=== PATIENT | female | born 1945 | race Two or more races ===

== ENCOUNTER → 2018-06-04 | Outpatient (CLI) | payer MEDICARE, BC | END | disposition home or self-care (01) | LOC: CFH 08:27 | PROVIDERS: ATTEND Internal Medicine Cardiovascular Disease | DX: R06.02 Shortness of breath (principal); R78.5 Finding of other psychotropic drug in blood; Z82.49 Family history of ischemic heart disease and other diseases of the circulatory system | CPT/HCPCS: 78452; 93017; A9502 ==

== ENCOUNTER 2018-10-16 08:55 | Day surgery (SDC) | payer MEDICARE, BC ==
[~2018-10-16] VITALS: Ht 160 cm; Wt 107.6 kg
[~2018-10-16 08:55] MED LIST: Will bring list DOS
[2018-10-16 09:55] VITALS: BP 170/90
[2018-10-16] MEDS ORDERED: ALPR1TAB6 PO (10:07)
[2018-10-16] MEDS ORDERED: HYDR500C3 PO (10:07)
[2018-10-16] MEDS ORDERED: MONT10TA9 PO (10:07)
[2018-10-16] MEDS ORDERED: VENL75TA2 PO (10:07)
[2018-10-16] MEDS ORDERED: LOVA20TA2 PO (10:07)
[2018-10-16] MEDS ORDERED: THYR90TA PO (10:07)
[2018-10-16] MEDS ORDERED: HYDR25TA6 PO (10:07)
[2018-10-16] MEDS ORDERED: BUSP15TA PO (10:07)
[2018-10-16] MEDS ORDERED: FLUT1BLS11 INH (10:07)
[2018-10-16] MEDS ORDERED: MIDAZOLAM 1 MG/ML, 2ML ONE (10:21)
[2018-10-16] MEDS ORDERED: FENTANYL PF 100 MCG/2ML ONE (10:21)
[2018-10-16] MEDS ORDERED: LACTATED RINGERS 1,000 ML IV SCH (10:23)
[2018-10-16] MEDS ORDERED: PROMETHAZINE 25 MG/ML, 1ML IV PRN (11:00)
[2018-10-16] MEDS ORDERED: FENTANYL PF 100 MCG/2ML IV PRN (11:00)
[2018-10-16] MEDS ORDERED: MEPERIDINE/PF 25MG/0.5ML IVPush PRN (11:00)
[2018-10-16] MEDS ORDERED: HYDROmorphone 2 MG/ML, 1ML IVPush PRN (11:00)
[2018-10-16] MEDS ORDERED: hydrALAzine 20 MG/ML, 1ML IV PRN (11:00)
[2018-10-16] MEDS ORDERED: ACETAMINOPHEN 325 MG TABLET PO PRN (11:00)
[2018-10-16] MEDS ORDERED: ONDANSETRON 2MG/ML, 2ML IV PRN (11:00)
[2018-10-16] MEDS ORDERED: OXYcodone 5 MG/5 ML ORAL.SOL UDC PO PRN (11:00)
[2018-10-16] MEDS ORDERED: LABETALOL 5MG/ML, 20ML IV PRN (11:00)
[2018-10-16] MEDS ORDERED: PROPOFOL 10 MG/ML, 20ML ONE (15:34)
== END 2018-10-16 13:10 | disposition home or self-care (01) ==
LOC: OUT 08:55
PROVIDERS: ATTEND Internal Medicine Gastroenterology
DX: Z12.11 Encounter for screening for malignant neoplasm of colon (principal); K63.5 Polyp of colon; K57.30 Diverticulosis of large intestine without perforation or abscess without bleeding; K64.1 Second degree hemorrhoids; G47.33 Obstructive sleep apnea (adult) (pediatric); F32.9 Major depressive disorder, single episode, unspecified; F41.9 Anxiety disorder, unspecified; Z79.899 Other long term (current) drug therapy
CPT/HCPCS: 45380; 88305; 93005; J2250; J2704; J3010